=== PATIENT | male | born 1980 | race Caucasian/White ===

== ENCOUNTER 2018-08-24 06:04 | Inpatient (IN) ==
[2018-08-24] MEDS ORDERED: CeFAZolin Syr 3,000MG/30 ML 3,000 MG/30 ML SYRINGE IVPB ONE (06:24)
[2018-08-24] MEDS ORDERED: Ringers Solution, Lactated 1,000 ML IVC SCH (06:30)
[2018-08-24] MEDS ORDERED: Lidocaine -MPF 2% 2 ML VIAL ONE ×2 (06:50→11:04)
[2018-08-24] MEDS ORDERED: *HR* FentaNYL (PF) 100 MCG/2 ML VIAL ONE (06:50)
[2018-08-24] MEDS ORDERED: *HR* Propofol 200 MG/20 ML VIAL IVP ONE (06:50)
[2018-08-24] MEDS ORDERED: Dexamethasone 4 MG/ML VIAL ONE (06:50)
[2018-08-24] MEDS ORDERED: Lidocaine -MPF 4% 5 ML AMPUL ONE (06:50)
[2018-08-24] MEDS ORDERED: Ondansetron 4 MG/2 ML VIAL ONE (06:50)
[2018-08-24] MEDS ORDERED: *HR* Succinylcholine 200 MG/10 ML VIAL IVP ONE (06:50)
[2018-08-24] MEDS ORDERED: *HR* Midazolam HCl 2 MG/2 ML VIAL ONE (06:50)
[2018-08-24] MEDS ORDERED: *HR* Phenylephrine 10 MG/ML VIAL ONE (06:51)
[2018-08-24] MEDS ORDERED: *HR* Remifentanil 1 MG VIAL IVP ONE ×2 (06:51→10:15)
--- NOTE | 2018-08-24 07:05 | Anesthesia Evaluation PreOp ---
Date of Encounter: 08/24/18 Time of Encounter: 07:01 - Past History Planned Operation: ACDF C6-C7, possible hardware removal Cardiac History: HTN Pulmonary History: Former smoker, Smoking Cessation [employer] History: Denies Any Significant HX Other Medical History: Hepatic (nonalcoholic fatty liver disease), Other (Cervical stenosis, cervical radiculopathy, Depression/Anxiety) Anesthesia History: No Prior Anesthetic Complications, Past Anesthesia (lt foot, rt foot, lt knee, gallbladder, cataract, cervical arthroplasty C5-6) Alcohol Use: occasionally Drug use: none Medications and Allergies FLUoxetine HCl [Fluoxetine HCl] 80 mg PO DAILY 08/24/18 [History] Gabapentin [Neurontin] 300 mg PO TID 08/24/18 [History] Loratadine [Allergy Relief] 10 mg PO DAILY PRN 08/24/18 [History] hydrOXYzine HCl [Hydroxyzine HCl] 25 mg PO BID PRN 08/24/18 [History] Allergy/AdvReac Type Severity Reaction Status Date / Time acetaminophen [From Tylenol] Allergy Abdominal Verified 08/24/18 07:19 Pain Varenicline [From Chantix] AdvReac See Verified 08/24/18 07:02 Comments - Meds/Allergy Pre-op Review Medications Reviewed: Yes Allergies Reviewed: Yes Beta Blockers on Current Med List: No Anesthesia Results - Labs Laboratory Tests 08/20/18 15:10 Hgb 16.9 Hct 50.5 H Plt Count 199 Laboratory Tests 08/20/18 15:10 Sodium 137 Potassium 4.0 Chloride 104 - Imaging EKG: image reviewed (SR with short MA interval) Anesthesia Exam O2 Sat Height 1.83 m Height 1.83 m Weight 135.624 kg Weight 135.624 kg O2 Sat by Pulse Oximetry 95 O2 Sat by Pulse Oximetry 95 Vital Signs Temp Pulse Resp BP Pulse Ox 97.9 F 54 18 130/94 95 08/24/18 06:41 08/24/18 06:41 08/24/18 06:41 08/24/18 06:41 08/24/18 06:41 Height: 6'0 Weight: 135 kg NPO (# of Hours): >8 hrs Pain Scale: 5 Pain Scale Used: Numeric (1 - 10) - HEENT Pupil (Motor): Pupils equal Mallampati: III Teeth: Normal Oral Opening: Greater than 3 - [employer] Motor: Normal RLE, Normal LLE, Normal Face, Deficit RUE, Deficit LUE [employer] Sensory: Normal: RLE, LLE, Face, Deficit: RUE, LUE - Cardiac Rhythm: Regular Murmur: None - Pulmonary Breath Sounds: left Rhonchi, bilateral Clear Anesthesia Assess/Plan ASA Score: 2 Level of consciousness: Cooperative Anesthetic Plan: General Recovery Plan: PACU
[2018-08-24] MEDS ORDERED: Propofol 500 MG/50 ML INFUS..BTL ONE ×3 (07:16→10:17)
[2018-08-24] MEDS ORDERED: *HR* OxyCODONE Immed Rel 5 MG TABLET PO PRN (07:25)
--- NOTE | 2018-08-24 07:32 | History & Physical Report ---
Date of Encounter: 08/24/18 Time of Encounter: 07:32 24 Hour HP Update - Instructions Instructions: If the History and Physical is less than 30 days old and was completed prior to A.M. admission and or procedure and has NOT been updated on calendar day of procedure please complete this update prior to performing procedure. - Update Patient reports changes in Medical Condition: No Changes in examination, assessment, or condition: No Changes in Medication: No Preop tests/diagnostics Reviewed: Yes Pre-Op MRSA Screen: Negative Surgery Remains Indicated: Yes Consent for Planned Operative Procedure(s) Verified: Yes - Pre-Operative Checklist Preoperative Checklist Indicated: No Prophylactic Antibiotic Ordered: Yes Home Medications Include Beta Marie: No Beta Marie Taken Today (Day of Surgery): No Beta Marie Taken Yesterday (Day Prior to Surgery): No Is VTE Prophylaxis Indicated?: Yes
[2018-08-24] MEDS ORDERED: Bacitracin 50,000 UNIT, Polymyxin B Sulfate 500,000 UNIT, Sodium Chloride IRRigation 1,... IR ONE (08:00)
[2018-08-24] MEDS ORDERED: EPHEDrine 50 MG/ML VIAL ONE (08:38)
[2018-08-24] MEDS ORDERED: *HR* HYDROMORPHONE 2 MG/ML VIAL ONE (10:49)
--- NOTE | 2018-08-24 11:15 | Orthopedic Operative Note ---
Date of procedure: 08/24/18 Pre-op diagnosis: Cervical stenosis, cervical radiculopathy Post-op diagnosis: same Operation/Findings: Removal of hardware C5-6, anterior cervical decompression and fusion C5-C7: The patient was brought to the operating room and placed supine on the operating room table. Successful general endotracheal anesthesia intubation was performed. Neurophysiologic monitoring personnel placed leads on the upper and lower extremities as well as the cranium for EMG monitoring purposes. Appropriate baseline potentials were noted by the neurophysiologic monitoring staff. Vila catheter was placed prior to positioning. Compression boots and stockings were placed for deep vein thrombosis prophylaxis. Padding was also placed all bony prominences including the ulnar nerve near the medial epicondyles of the elbows were appropriately padded. Mild traction was placed on the bilateral shoulders and taped into place. Preoperative antibiotics were administered. The area from the mandible bilaterally to the upper thoraces was prepped and draped in the usual sterile fashion. A transverse incision was made at the level of the cricoid cartilage which is approximately 3 cm in length and extended from the midline of the cervical spine laterally towards the sternocleidomastoid muscle on the left. We then performed standard medial approach to the carotid sheath. Sponges were used to tease the fascial medial to the sternocleidomastoid muscle while carefully controlling and palpating the carotid artery. Using careful dissection we were able to get to the level of the anterior vertebral bodies and longus coli muscles. The spinal needle was placed at the appropriate C6-7 level, and intraoperative radiograph was obtained which was a cervical spine lateral radiograph. The needle and radiograph confirmed we were at the correct C6-7 operative level. We further exposed this level by using Bovie cautery under the medial edge of the longus colli muscles to allow them to be retracted approximately 2 mm laterally on each side. An 11 blade was used to perform anterior discectomy at the appropriate C6-7 level after an initial annulotomy of the anterior longitudinal ligament and annulus was performed. Further disc material was removed with pituitary Rongeurs. Subsequently, Synthes pins were placed at the C6 and C7 vertebral bodies respectively to provide distraction. We then used a Trimline cervical retractor which was placed in both medial and lateral as well as inferior superior direction to allow full visualization of the appropriate C6-7 disc and vertebral bodies. The Leica microscope was brought to the field and the remainder of the procedure was performed under the guidance of this microscope. Using pituitary rongeurs and small curettes, various micro-instruments, a full discectomy was performed at the appropriate C6-C7 level. The posterior longitudinal ligament was encountered and appeared partially calcified. A portion of this ligament was removed. After complete and thorough discectomy and removal of spondylitic material was performed the endplates of the C6 and C7 vertebral bodies were prepared with a bur until allow bleeding of cancellous bone. A 8mm trial graft was evaluated and appeared to fit quite well within the excised C6-7 disc space. A cortico-cancellous allograft of 8 mm was utilized, carefully tapped into place within the excised disc space with the aid of a bone tamp. It was seated approximately 2 mm from the anterior edge of the cortex of the adjacent vertebral bodies. We then turned our attention to the C5-6 level. At this level was an arthroplasty device (Mobi C, LDR Anna). There was some anterior migration of the device in relation to the vertebral bodies at C5-6 so this was further exposed and the arthroplasty device removed. We then performed a similar series of procedures that was performed previously on C6-7 including removal of spondylitic material, removal of fibrocartilaginous scar tissue, decompression, end plate preparation, and trial grafting. A 7mm trial fit well within the C5-6 disc space. A 7 mm allograft was then placed at C5-6. A cervical plate was then placed on the anterior aspect of the C5, C6, and C7 vertebral bodies. The plate was placed in the midline position after drilling six 13 mm self tapping screws and inserting them. They were locked in place using standard Venture plate maneuvers. At this point a lateral radiograph of the cervical spine was obtained and showed satisfactory position of the graft and plate. The wound was copiously irrigated and bleeders encountered were cauterized using Bovie cautery. Platysma was closed with interrupted 2-0 Vicryl sutures. Running 3-0 Monocryl suture was used for skin closure. Sterile dressing was placed over the neck wound. A cervical collar was placed. The patient was transferred to a hospital bed and extubated. The patient was noted to be fully motor and sensory intact in the recovery room at the end of the procedure. The medications. All sponge instrument and needle counts were correct at the end of the procedure. Anesthesia: GETA Surgeon: Evans Savage Jr Was there an behavioral assistant present: No Estimated blood loss (cc): 20 Specimen: None Condition: stable Disposition: PACU
[2018-08-24] MEDS: *HR* HYDROmorphone (PF) 1 MG/ML SYRINGE IVP PRN ×2 (11:45→11:50)
--- NOTE | 2018-08-24 12:29 | Anesthesia Evaluation Post Op ---
Date of Encounter: 08/24/18 Time of Encounter: 12:28 - Vital Signs Vital Signs: Vital Signs/O2 Sat/Glucose, Most Current Temp Pulse Resp BP Pulse Ox 08/24/18 12:22 99.7 F H 78 14 132/93 93 08/24/18 12:12 76 11 136/95 95 08/24/18 12:02 99.7 F H 77 14 137/97 92 08/24/18 11:52 86 16 125/100 93 08/24/18 11:42 85 16 127/97 95 08/24/18 11:32 97.1 F L 97 18 144/101 95 - Lungs Lungs: Clear Ascult./Percussion - Airway Airway: Non-obstructed - Cardiovascular Regular Rate - Mental Status Mental Status: Alert & Oriented, Answers Appropriately - Pain Pain Scale: 5 Pain Scale used: Numeric (1 - 10) - Nausea Vomiting Nausea Vomiting: Not Present - Hydration Hydration: Ice chips, Has not voided - Discharge PostOp Status: Transfer Patient to floor
[2018-08-24] MEDS ORDERED: *HR* HYDROcodone/Acet 5/325 mg TABLET PO PRN (12:44)
[2018-08-24] MEDS ORDERED: Ondansetron 4 MG/2 ML VIAL IVP PRN (12:44)
[2018-08-24] MEDS ORDERED: hydrOXYzine pamoate 25 MG CAPSULE PO PRN (12:44)
[2018-08-24] MEDS ORDERED: Naloxone 0.4 MG/ML INJ IVP PRN (12:44)
[2018-08-24] MEDS ORDERED: Loratadine 10 MG TABLET PO PRN (12:44)
[2018-08-24] MEDS: *HR* OxyCODONE Immed Rel 5 MG TABLET PO PRN ×3 (13:01→20:09)
[2018-08-24] MEDS: Ringers Solution, Lactated 1,000 ML IVC SCH (15:29)
[2018-08-24] MEDS: Gabapentin 300 MG CAPSULE PO SCH ×2 (15:30→20:09)
[2018-08-24] MEDS ORDERED: Ibuprofen 600 MG TABLET PO PRN (20:43)
[2018-08-25] MEDS: *HR* OxyCODONE Immed Rel 5 MG TABLET PO PRN ×2 (02:27→09:12)
[2018-08-25] MEDS: Ringers Solution, Lactated 1,000 ML IVC SCH (04:03)
[2018-08-25] MEDS ORDERED: FLUoxetine 20 MG CAPSULE PO SCH (09:00)
[2018-08-25] MEDS: Gabapentin 300 MG CAPSULE PO SCH (09:10)
--- NOTE | 2018-08-25 10:54 | Discharge Summary ---
Date of Encounter: 08/25/18 Time of Encounter: 09:00 - Hospital Course Hospital course: Mr. Estrada is a 38 year old male POD#1 Removal of hardware C5-6, anterior cervical decompression and fusion C5-C7 [Cervical stenosis, cervical radiculopathy] 08/24/18 The patient had an uneventful postoperative course. Progressed from intravenous analgesic needs to oral analgesic needs only. Remained neurovascularly intact and mobilized satisfactorily. All intraoperative and/or postoperative radiographic studies were satisfactory. Patient course and disposition discussed with Dr. Savage. Patient is discharged with plan for rehabilitation and follow- up in 2 weeks post discharge on analgesic medication and patient's home medications. - Time Spent with Patient Total time spent providing and/or coordinating discharge services: - Discharge Medications Prescriptions: New Docusate Sodium [Colace] 100 mg PO BID 5 Days #10 capsule Cyclobenzaprine HCl 5 mg PO TID 7 Days #21 tablet OxyCODONE Immed Rel [Roxicodone 5 MG] 5 mg PO Q6HR PRN 5 Days #20 tablet PRN Reason: Severe Pain Continued Loratadine [Allergy Relief] 10 mg PO DAILY PRN PRN Reason: Allergy Symptoms hydrOXYzine HCl [Hydroxyzine HCl] 25 mg PO BID PRN PRN Reason: Anxiety Gabapentin [Neurontin] 300 mg PO TID FLUoxetine HCl [Fluoxetine HCl] 80 mg PO DAILY Home Medications: FLUoxetine HCl [Fluoxetine HCl] 80 mg PO DAILY 08/24/18 [History] Gabapentin [Neurontin] 300 mg PO TID 08/24/18 [History] Loratadine [Allergy Relief] 10 mg PO DAILY PRN 08/24/18 [History] hydrOXYzine HCl [Hydroxyzine HCl] 25 mg PO BID PRN 08/24/18 [History] Cyclobenzaprine HCl 5 mg PO TID 7 Days #21 tablet 08/25/18 [Rx] Docusate Sodium [Colace] 100 mg PO BID 5 Days #10 capsule 08/25/18 [Rx] OxyCODONE Immed Rel [Roxicodone 5 MG] 5 mg PO Q6HR PRN 5 Days #20 tablet 08/25/18 [Rx] Allergies/Adverse Reactions: Allergy/AdvReac Type Severity Reaction Status Date / Time acetaminophen [From Tylenol] Allergy Abdominal Verified 08/24/18 07:19 Pain Varenicline [From Chantix] AdvReac See Verified 08/24/18 07:02 Comments Date of admission: 08/24/18 12:38 Primary care physician: Cally Gallegos CNP Consults: 08/24/18 12:44 Consult to Physical Therapy [CONS] Routine Comment: Evaluate, develop and implement POC Reason for Consult: Postoperative rehabilitation Does patient have active BEDREST order?: No Is patient medically & hemodynamically stable?: Yes Patient assessed for mobility or mobilized this visit?: No Consult to Spine Navigator [CONS] [CONS] Routine Discharging clinician: Evans Savage Jr Anticipated date of discharge: 08/25/18 - VTE Documentation of Mechanical Device: Graduated compression elastic hosiery - Impressions ITS Impressions Cervical Spine X-Ray 08/24/18 08:40 IMPRESSION: Intraprocedural fluoroscopic spot images as above. See separate procedure report for more information. D/ / 08/24/2018 11:32:48 Tam Balbuena MD / Ramona Mcdaniel Interpreting Provider: Tam Balbuena MD Fluoroscopy 08/24/18 08:40 IMPRESSION: Intraprocedural fluoroscopic spot images as above. See separate procedure report for more information. D/ / 08/24/2018 11:32:48 Tam Balbuena MD / Ramona Mcdaniel Interpreting Provider: Tam Balbuena MD Cervical Spine X-Ray 08/25/18 08:16 IMPRESSION: 1. Status post ACDF at C5 through C7 with expected postsurgical changes. D/ / 08/25/2018 09:09:21 Maria Antonia Arredondo MD / pablo Interpreting Provider: Maria Antonia Arredondo MD - Patient Status Disposition: Home, Self-Care Condition: Good Functional capacity at discharge: uses cane/walker Overall status at discharge: patient is progressing back to baseline - Discharge Instructions Follow Up With: El,Cally G, DENTAL SERVICE TECHNICIAN [Primary Care Provider] - Additional Instructions: Discharge Instructions: Cervical Please call [facility] ([phone]), your Primary Care Physician, or report to the ER if you have any of the following symptoms: Fever greater that 101.5, increased pain/redness/drainage/odor for your incision site or any other concerning symptoms. ACTIVITY * May Shower * No Tub Baths * No Smoking * No Swimming * No Driving * Wear Collar when up walking * Incentive Spirometer 10 times an hour MEDICATIONS: Upon discharge resume your home medications. Take all the medications as prescribed. Take a stool softener if taking narcotic pain medications. Stool softeners are only effective if you drink enough fluids. Drink 6-8 glass of water or fluids a day, unless this is not allowed for another health problem. Despite using stool softeners, if you haven't had a bowel movement in 3 days, please switch to a gentle laxative. Gentle laxatives are sold over the counter. You should have a bowel movement within 24 hours, if not call the office. You will be discharged from the hospital with a prescription for pain medication. You are encouraged to decrease the use of narcotic pain medication as tolerated. Should you require a refill, please call the office. It is best to call 48-72 hours in advance of needing a prescription refill so you don't run out of medication. WOUND CARE: Leave steri-strips in place until they fall off on their own. Pat dry when you get out of the shower. FOLLOW-UP: Please follow up with your surgeon in the orthopedic clinic in 2 weeks from the day of surgery. References: [employer] (www.[email or web address]) - Diet and Activity Activity: as per physical therapy Diet: advance to your usual diet
[2018-08-25 11:32] VITALS: BP 148/81
== END 2018-08-25 12:59 | disposition home or self-care (01) | DRG 473 ==
LOC: SAMDAY 06:04 → 3NENU 12:38
PROVIDERS: ADMIT Orthopaedic Surgery Orthopaedic Surgery of the Spine; ATTEND Orthopaedic Surgery Orthopaedic Surgery of the Spine